=== PATIENT | female | born 1930 ===

== ENCOUNTER 2019-01-30 17:57 | Emergency (ER) | payer MEDICARE ==
[2019-01-30 18:33] VITALS: BP 175/92
--- NOTE | 2019-01-30 18:49 | UC ---
Back Pain HPI - HPI Summary HPI Summary: Patient is a 88 year old female , who presents today to the urgent care with low back pain for past 2 days. She reports that she woke up with left low back pain that radiates down to her left groin and all the way to the left ankle. She denies any recent fall, injury or trauma to her back. Denies any numbness , tingling , incontinence, saddle anesthesia , motor or sensory disturbance. She also states having urinary frequency in the past 2 days along with "strong odor" Denies any fever, chills, cough chest pain or shortness of breath . No diaphoresis. Denies any abdominal pain , nausea or vomiting , diarrhea or constipation. She is taking Tylenol 2 tablets twice daily. - History of Current Complaint Chief Complaint: UCGU Stated Complaint: BACK PAIN Time Seen by Provider: 01/30/19 18:43 Hx Obtained From: Patient Pain Intensity: 9 - Allergies/Home Medications Allergies/Adverse Reactions: Allergies Allergy/AdvReac Type Severity Reaction Status Date / Time No Known Allergies Allergy Verified 01/30/19 18:33 Home Medications: Home Medications Acetaminophen [Tylenol Arthritis] 650 mg PO DAILY 01/30/19 [History Confirmed ] Furosemide TAB* [Lasix TAB*] 20 mg PO DAILY 01/30/19 [History Confirmed 01/30/19 ] Isosorbide Mononitrate ER TAB* [Imdur ER TAB*] 30 mg PO DAILY 01/30/19 [History Confirmed 01/30/19] Levothyroxine TAB* [Synthroid TAB*] 100 mcg PO DAILY 01/30/19 [History Confirmed 01/30/19] Warfarin TAB(*) [Coumadin TAB(*)] 3 mg PO 1700 01/30/19 [History Confirmed 01/30] metFORMIN* [Glucophage 500 MG TAB *] 500 mg PO DAILY 01/30/19 [History Confirmed 01/30/19] PMH/Surg Hx/FS Hx/Imm Hx - Additional Past Medical History Additional PMH: Past Medical History : WI status post stent placement, hypertension, diabetes mellitus type 2, asthma, thyroid, GERD, renal stent placement Family History : Noncontributory Social History : No alcohol, former smoker, no drug use. Previously Healthy: Yes - Surgical History Surgical History: Yes Surgery Procedure, Year, and Place: open heart - Social History Alcohol Use: None Substance Use Type: None Smoking Status (MU): Former Smoker Review of Systems All Other Systems Reviewed And Are Negative: Yes Constitutional: Positive: Negative Skin: Positive: Negative Eyes: Positive: Negative ENT: Positive: Negative Respiratory: Positive: Negative Cardiovascular: Positive: Negative Gastrointestinal: Positive: Negative Genitourinary: Positive: Frequency, Other - Foul order. Negative: Hematuria Motor: Positive: Negative Neurovascular: Positive: Negative Musculoskeletal: Positive: Arthralgia - Left low back and left groin Neurological: Positive: Negative Psychological: Positive: Negative Is Patient Immunocompromised?: No Physical Exam - Summary Physical Exam Summary: Physical Exam: Const: Appears well. No signs of apparent distress present. Alert and oriented x 3. Musculo: Using a wheelchair Head/Face: Atraumatic, normocephalic on inspection. Eyes: Normal vision ENT: Hearing normal, Respiratory: Respirations are unlabored. Lungs clear to auscultation bilaterally CVS: Regular rate and Rhythm, S1S2 normal , no murmurs identified. Extremities: Peripheral circulation is grossly normal. Pulses 2+ Abdomen : Soft non tender Skin: No lesions or rash located on the upper extremities or on the lower extremities. Neuro: Cranial nerves II to XII intact, motor and sensory intact. DTR Intact bilaterally. Mood is normal. Affect is normal. Spine: Inspection/palpation :No loss of the normal lumbar lordosis or step-off. No midline tenderness . There is left lumbar paraspinal tenderness spine noted. There is no tenderness of the costovertebral angle bilaterally. Stability: No obvious instability. Strength: Flexion, extension, left rotation, left lateral bending, right lateral bending and right rotation strength is intact. ROM: Limited and painful range of motion Special Tests: Straight leg raise is negative bilaterally. Hip: Insp/Palp: Normal to inspection and palpation. Strength: 5/5 bilaterally. Normal muscle tone bilaterally. ROM: Bilateral hips: full ROM - internal and external rotation, DUKE and FADIR negative for pain Skin: No scars, rashes, lesions or ecchymosis. Neuro: Sensation intact to light touch. Motor and sensory intact. Reflexes: Decreased bilaterally . Toes downgoing. Coordination normal. Distal pulses intact. Triage Information Reviewed: Yes Vital Signs: Initial Vital Signs Temp 97.4 F 01/30/19 18: Pulse 84 06/02/19 18:19 Resp 16 01/30/19 18:19 BP 175/92 01/30/19 18:19 Pulse Ox 100 01/30/19 18:19 Vital Signs Reviewed: Yes Diagnostics - Radiology No standard instances Radiology Interpretation Completed By: ED Physician - X-rays of the left hip and AP pelvis: No fracture, mild to moderate left hip osteoarthritis X-rays of the lumbar spine: DJD of lumbar spine Back Pain Course/Dx - Course Course Of Treatment: During the visit today, we obtained UA which is positive for leuk esterase 1+ , nitrite negative . X-rays of the left hip and AP pelvis: No fracture, mild to moderate left hip osteoarthritis X-rays of the lumbar spine: DJD of lumbar spine X-rays were done after 6 PM so no official read was available. I advised her that the x-rays will be read tomorrow in morning and Her she will get a call if anything abnormal or different. symptoms appear to be consistent with left lumbar strain with lumbar arthritis and left hip arthritis, possible spinal stenosis. We discussed the findings and further plan to start physical therapy(consider home physical therapy), pain control with Tylenol. Avoid Flexeril and other muscle relaxants given her falls risk. I will start her on Macrobid. Patient expressed understanding . - Differential Dx/Diagnosis Provider Diagnosis: Lumbar strain, Low back pain, UTI (urinary tract infection), Arthritis, lumbar spine Discharge - Sign-Out/Discharge Documenting (check all that apply): Patient Departure All imaging exams completed and their final reports reviewed: No - Discharge Plan Condition: Stable Disposition: HOME Prescriptions: Nitrofurantoin Monohyd/M-Cryst [Macrobid 100 mg Capsule] 100 mg PO BID 5 Days # 9 cap Patient Education Materials: Low Back Strain (ED), Core Strengthening Exercises (GEN), Lower Back Exercises (ED) Referrals: Marie Taylor [Primary Care Provider] - 2 Days Additional Instructions: Start taking the medication for your urinary infection as prescribed. Please start physical therapy Pain control with Tylenol Patients blood pressure high in Urgent care today , plan follow up with PCP for better control within 1 month Return to Urgent care / ER if symptoms get worse. - Billing Disposition and Condition Condition: STABLE Disposition: Home
[2019-01-30] MEDS ORDERED: Nitrofurantoin Macrocrystals* 50 MG CAP PO ONE (19:24)
--- NOTE | 2019-01-31 08:22 | UC ---
- Progress Note Progress Note: Patient Name: SANGITA BRANDON Medical Record#: [id number] Ordering Physician: Dominga Palma MD Acct.#: [id number] : 1930 Age: 88 Sex: F Location: URGENT [facility] Exam Date: 01/30/191911 ADM Status: [facility] ER Order Information: HIP LEFT 2 VIEWS AND PELVIS Accession Number: [id number] CPT: 82696 HISTORY: left groin pain . COMPARISONS: None relevant available at the time of dictation. VIEWS: 4, Frontal view of the pelvis with frontal and frog-leg views of the left hip FINDINGS: BONE DENSITY: There is diffuse osteopenia. BONES: There is no displaced fracture. JOINTS: There is moderate osteoarthritis of the hips and SI joints bilaterally. ALIGNMENT: There is no dislocation. SOFT TISSUES: There is peripheral arterial calcification. A renal artery stent is noted. OTHER FINDINGS: Degenerative changes are noted of the spine. IMPRESSION: 1. OSTEOPENIA. 2. OSTEOARTHRITIS. 3. PERIPHERAL ARTERIAL DISEASE. 4. NO RADIOGRAPHIC EVIDENCE FOR HIP FRACTURE. X-RAYS MAY BE NEGATIVE WITH NONDISPLACED HIP FRACTURE, IF THERE IS PERSISTENT CLINICAL CONCERN, RECOMMEND CONSIDERATION OF MRI. IN THE SETTING OF CONTRAINDICATION TO MRI OR LIMITATION IN EMERGENT ACCESS TO MRI, CT WOULD BE SUGGESTED. R0 Preliminary Imaging Read R0 <Electronically signed by Robb Tanner MD in OV> 01/31/19756 Dictated By: Robb Tanner MD Dictated Date/Time: 01/31/19756 Transcribed Date/Time: 01/31/19755 Copy to: CC:Zac OSUNA; Dominga Palma MD This report is only to be considered final once signed by the Provider(s) as displayed in the "<Electronically Signed by >" field (s). Absence of a signature indicates the report is in a draft status and still needs to be finalized. In the event this document was created by someone other than the signing Provider, the individual initiating the document will be listed in the "Entered by:" or "Dictated by:" moore. 1 of 2 Patient Name: SANGITA BRANDON Medical Record#: [id number] Ordering Physician: Dominga Palma MD Acct.#: [id number] : 1930 Age: 88 Sex: F Location: [facility] Exam Date: 01/30/191911 ADM Status: DEP ER Order Information: SP LUMBAR AP/LAT 2-3 VIEWS Accession Number: [id number] CPT: 94911 HISTORY: low back pain COMPARISONS: March 31, 2016 VIEWS: 2 , Frontal and lateral views of the lumbar spine FINDINGS: There is a transitional last lumbar type vertebral body which will be labeled S1 for the purposes of counting. ALIGNMENT: The alignment is normal. VERTEBRAL BODIES: There is partial lumbarization of the S1 vertebral body. There is diffuse osteopenia. There is multilevel lateral marginal osteophyte formation with sclerotic reactive endplate changes at L4-L5. JOINTS: There is extensive facet osteoarthritis most pronounced at L4-L5 and L5 -S1. INTERVERTEBRAL DISCS: There is diffuse loss of intervertebral disc height. SOFT TISSUE: There is atherosclerosis of the aorta and its branches. A stent is noted. OTHER: There is osteoarthritis of the hips and SI joints. IMPRESSION: OSTEOPENIA. DEGENERATIVE DISC DISEASE AND OSTEOARTHRITIS. ATHEROSCLEROSIS. R1NF Preliminary Imaging Read R1NF <Electronically signed by Robb Tanner MD in OV> 01/31/19757 Dictated By: Robb Tanner MD Dictated Date/Time: 01/31/19757 Transcribed Date/Time: 01/31/19756 Copy to: CC:Zac OSUNA; Dominga Palma MD Imaging - [facility] Imaging [facility] This report is only to be considered final once signed by the Provider(s) as displayed in the "<Electronically Signed by >" field (s). Absence of a signature indicates the report is in a draft status and still needs to be finalized. In the event this document was created by someone other than the signing Provider, the individual initiating the document will be listed in the "Entered by:" or "Dictated by:" moore. 1 of 2 Course/Dx - Diagnoses Provider Diagnoses: Lumbar strain, Low back pain, UTI (urinary tract infection), Arthritis, lumbar spine Discharge - Sign-Out/Discharge Documenting (check all that apply): Post-Discharge Follow Up All imaging exams completed and their final reports reviewed: Yes - Discharge Plan Condition: Stable Disposition: HOME Prescriptions: Nitrofurantoin Monohyd/M-Cryst [Macrobid 100 mg Capsule] 100 mg PO BID 5 Days # 9 cap Patient Education Materials: Low Back Strain (ED), Core Strengthening Exercises (GEN), Lower Back Exercises (ED) Referrals: Marie Taylor [Primary Care Provider] - 2 Days Additional Instructions: Start taking the medication for your urinary infection as prescribed. Please start physical therapy Pain control with Tylenol Patients blood pressure high in Urgent care today , plan follow up with PCP for better control within 1 month Return to Urgent care / ER if symptoms get worse. - Billing Disposition and Condition Condition: STABLE Disposition: Home
== END 2019-01-30 19:54 | disposition home or self-care (01) ==
LOC: UCCORT 17:57
DX: S39.012A Strain of muscle, fascia and tendon of lower back, initial encounter (principal); N39.0 Urinary tract infection, site not specified; M19.90 Unspecified osteoarthritis, unspecified site; M51.36 Other intervertebral disc degeneration, lumbar region; M47.9 Spondylosis, unspecified; X58.XXXA Exposure to other specified factors, initial encounter
CPT/HCPCS: 72100; 81003; 87086; 99212; A9270-GY; G0463